=== PATIENT | female | born 1970 | race Caucasian/White ===

== ENCOUNTER → 2025-03-27 | Day surgery (SDC) | payer OTHER ==
[~2025-03-27] MED LIST: CALCIUM500 MG PO; CLARITIN-D 241 EACH PO; COLLAGEN PO; FENTANYL CITRATE/PF 100MCG/2 ML INJ ONE; FLONASE ALLERG9.9 ML INH; FOLIC ACID0.4 MG PO; GINGER PO; HYOSCYAMINE SULFATE 0.5 MG/ML INJ ONE; LIDOCAINE HCL 2% LOCAL INJ 5 ML SDV VIAL INJ ONE; METHOTREXATE2.5 MG PO; MIDAZOLAM HCL 2 MG/2 ML VIAL ONE; MULTIVITAMIN PACK PO; ONDANSETRON HCL INJ 2MG/ML 2ML 2 MG/ML VIAL ONE; ORENCIA 250 MG250 MG IV; PROBIOTIC1 EAC1 PO; PROPOFOL IV EMULSION 50 ML IV ONE; TERBINAFINE HC250 MG PO; TUMERIC PO
[2025-03-27] MEDS: LACTATED RINGER'S 1,000 ML ONE (08:12)
[2025-03-27 08:16] VITALS: TEMP 97.8
[2025-03-27 08:30] VITALS: BP 128/87; PULSE 91; RESP 15; O2SAT 95
== END | disposition home or self-care (01) ==
LOC: OR 05:55
PROVIDERS: ATTEND Internal Medicine Gastroenterology
DX: Z12.11 Encounter for screening for malignant neoplasm of colon (principal); M06.9 Rheumatoid arthritis, unspecified; G47.00 Insomnia, unspecified; G47.33 Obstructive sleep apnea (adult) (pediatric); Z88.2 Allergy status to sulfonamides; Z91.040 Latex allergy status; Z79.69 Long term (current) use of other immunomodulators and immunosuppressants; Z79.51 Long term (current) use of inhaled steroids; Z79.631 Long term (current) use of antimetabolite agent; Z79.899 Other long term (current) drug therapy; Z01.810 Encounter for preprocedural cardiovascular examination
CPT/HCPCS: 45378; 93005; J1980; J2003; J2250; J2405